=== PATIENT | female | born 1990 | race Caucasian/White ===

== ENCOUNTER 2018-01-28 19:52 | Emergency (ER) | payer OTHER ==
--- NOTE | 2018-01-28 19:57 | ED Physician Documentation ---
Foot Injury - HISTORIAN Historian: patient - HPI Stated Complaint: right ankle and foot pain after twisting it yesterday Chief Complaint: Ankle Injury Onset: days ago (1) Where: home Severity: mild Context: twist Associated Symptoms:: denies: tingling, numbness distally, swelling, unable to bear weight Modifying Factors:: pain on movement Further Comments: yes (she twisted her ankle on a curb yesterday after working today she has stated she needs an xray because pain continues. She has not tried any OTC meds or ice. She has no change in ROM . She has no loss of sensation) - ROS CONST: no problems - PAST HX Past History: none Immunizations: UTD Allergies/Adverse Reactions: Allergies Allergy/AdvReac Type Severity Reaction Status Date / Time cephalexin [From Keflex] Allergy Intermediate Rash Verified 01/28/18 20:22 clindamycin Allergy Intermediate Rash Verified 01/28/18 20:22 Home Medications: Ambulatory Orders Medication Instructions Recorded Biotin 10,000 mcg PO DAILY 01/28/18 Buspirone HCl [Buspar] 20 mg PO DAILY 01/28/18 Citalopram Hydrobromide [Celexa] 20 mg PO QD 01/28/18 Desog-E.estradiol/E.estradiol 1 tab PO DAILY 01/28/18 [Azurette 28 Day Tablet] - SOCIAL HX Smoking History: non-smoker Alcohol Use: none Drug Use: none - FAMILY HX Family History: none - REVIEWED ASSESSMENTS Nursing Assessment Reviewed: Yes Vitals Reviewed: Yes ED Results Lab/Radiology - Radiology Radiology Impressions: Right ankle three views History: Pain after fall Findings: The right ankle is unremarkable without fracture, dislocation, arthropathy, or focal bone lesion. A small heel spur is present. Electronically signed on Jan 28, 2018 8:54:29 PM CDT by: Alphonso Stephens Right foot three views History: Pain after fall Findings: A small plantar heel spur is observed. There is no fracture, dislocation, arthropathy, or focal bone lesion. Electronically signed on Jan 28, 2018 8:55:28 PM CDT by: Alphonso Stephens Foot Injury Physical Exam - Physical Exam General Appearance: no acute distress, alert Foot: right foot: bone tenderness, pain, soft tissue tenderness, swelling, left foot: non-tender, normal inspection, no evidence of injury, bilateral foot: normal range of motion, abrasions/lacerations, N/A: deformity, ecchymosis, infection, limited range of motion Ankle: right: bone tenderness, pain, soft tissue tenderness, swelling, left: non-tender, normal inspection, normal range of motion, no evidence of injury, bilateral: abrasions/laceration, N/A: limited range of motion Gait: limited by pain Neuro: sensation nml, motor nml Vascular: no vascular compromise Leg/Knee/Thigh: uninjured above ankle Skin: intact Resp/CVS: chest non-tender, breath sounds nml, heart sounds nml, no resp. distress, lungs clear Abdomen: non-tender Discharge Clincal Impression: Right foot pain Referrals: Jaiden Johnson MD [Primary Care Provider] - 2 Days Comments: 1. OTC meds for pain 2. Venkata wrap to right ankle 3. Follow up with PCP in 2-4 days if no improvement 4. Return to ER for any concerns Condition: Stable Disposition: 01 HOME, SELF-CARE Decision to Admit: NO Date of Decison to Admit: 01/28/18 Decision Time: 21:30
--- NOTE | 2018-01-28 21:14 | Diagnostic Imaging Report ---
[place] CLARKE [facility] [place] [facility] [id number] [facility] [address] [place], [place]. [address] Report Submission Date: Jan 28, 2018 8:54:29 PM CDT Patient Study Name: JAY JAY PRINGLE Date: Jan 28, 2018 8:30:41 PM CDT Modality Type: DX Gender: F Description: LOWER EXTREMITY : 89 Institution: [facility] Physician: MO CLARKE Right ankle three views History: Pain after fall Findings: The right ankle is unremarkable without fracture, dislocation, arthropathy, or focal bone lesion. A small heel spur is present. Electronically signed on Jan 28, 2018 8:54:29 PM CDT by: Alphonso CAMEJO
--- NOTE | 2018-01-28 21:14 | Diagnostic Imaging Report ---
[place] CLARKE [facility] [address] [facility] [address] [place], [place]. [address] Report Submission Date: Jan 28, 2018 8:55:28 PM CDT Patient Study Name: JAY JAY PRINGLE Date: Jan 28, 2018 8:33:59 PM CDT Modality Type: DX Gender: F Description: LOWER EXTREMITY : 89 Institution: [facility] Physician: MO CLARKE Right foot three views History: Pain after fall Findings: A small plantar heel spur is observed. There is no fracture, dislocation, arthropathy, or focal bone lesion. Electronically signed on Jan 28, 2018 8:55:28 PM CDT by: Alphonso CAMEJO
[2018-01-28 21:48] VITALS: BP 130/77
== END 2018-01-28 21:40 | disposition home or self-care (01) ==
LOC: ED 19:52
DX: M79.671 Pain in right foot (principal)
CPT/HCPCS: 73610; 73630; 99282